=== PATIENT | male | born 1990 | race Caucasian/White ===

== ENCOUNTER 2025-07-15 19:06 | Emergency (ER) | payer SELFPAY ==
[2025-07-15 19:10] VITALS: BP 119/82
[2025-07-15 19:16] VITALS: BP 122/85
--- NOTE | 2025-07-15 20:49 | EDRN ---
patient is alert and oriented x 3, answering orientation questions appropriately with normal speech. per mom, patient is acting unusual, as if his short term memory is impaired. patient states he is unable to recall the events of tonight, only
remembers being at work and driving home from work, he does not remember calling his mom and saying he could not breath. patient endorses headache, congestion, ear ache. patient denies CP, SOB, dizziness. patient denies alcohol use today, states he
took Suboxone for Percocet use, last use of Percocet being Saturday. patient is crying during senior medical billing specialist, but cooperative and calm.
--- NOTE | 2025-07-15 21:16 | ED.GENMED ---
History of Present Illness
General
Chief Complaint: Withdrawal Symptoms
Time Seen by Provider: 07/15/25 21:16
History of Present Illness
History of Present Illness:
FOCUSED PAST MEDICAL HISTORY
- Opioid use disorder
REVIEW OF OLD RECORDS
- In 2019, the patient was seen here with a syncopal event after coughing
Note:
CHIEF COMPLAINT(S)
Altered mental status, memory loss, and breathing difficulty.
HISTORY OF PRESENT ILLNESS
The patient is a 34-year-old male with a history of opioid abuse, including the use of Percocet over the weekend, and is not prescribed Suboxone. The patient was working in [place] earlier today and successfully drove back to [place] but does not
remember returning the company van or the journey back. Upon arriving home, he reported to a family member that he was experiencing difficulty catching his breath. A concerned neighbor was called to check on him after the family member instructed
them to do so. The patient presents with a slight headache and left ear congestion, noting the left ear as feeling clogged. Upon examination, his left tympanic membrane showed erythema but no cerumen obstruction. In addition to these symptoms, the
patient has some history of vasovagal syncope, with a noted episode in 2019. He is currently somewhat sedate and lethargic, able to follow simple commands, but disoriented to the current month while aware of his location at the hospital. His pupils
react briskly and equally, although his current condition does not indicate acute opioid withdrawal or intoxication.
PAST MEDICAL AND SURGICAL HISTORY
History of opioid abuse.
CHRONIC MEDICAL CONDITIONS SIGNIFICANTLY AFFECTING CARE
Ongoing opioid abuse not under medical supervision.
SOCIAL DETERMINANTS AFFECTING HEALTH
The patient has a history of using opioids recreationally and in a potentially unmanaged manner.
REVIEW OF SYSTEMS
- Neurological: Memory loss, confusion regarding current date.
- Respiratory: Reported difficulty breathing.
- Ear, Nose, and Throat: Headache, left ear congestion and pain.
PHYSICAL EXAM
General: GCS 13, appears confused, primarily keeps eyes closed, he appears photophobic
Skin: Warm, dry.
Head: Normocephalic, atraumatic. I see no evidence of craniofacial trauma
Neck: Supple, trachea midline.
Eye Ears, Nose, Mouth, and Throat: Left tympanic membrane shows erythema, oral mucosa moist.
Cardiovascular: Normal peripheral perfusion, no edema.
Respiratory: Respirations are non-labored.
Gastrointestinal: Abdomen nondistended.
Back: Normal range of motion, normal alignment.
Musculoskeletal: Normal range of motion, normal strength.
Neurological: The patient is lethargic, he could not name the month, but he knows he is at [facility], he is moving all extremities
Psychiatric: He appears confused and appears to be an unreliable historian
PLAN
The patient will undergo a computed tomography (CT) scan and blood work to investigate further the cause of his symptoms. Given his history and current presentation, monitoring and possibly addressing his opioid use will be necessary.
DIFFERENTIAL DIAGNOSIS
The Differential Diagnosis includes, in no particular order and is not limited to:
1. Opioid intoxication or withdrawal
2. Vasovagal syncope
3. Respiratory infection
4. Acute anxiety or panic attack
5. Substance abuse or overdose (other than opioids)
6. Intracranial event (e.g., cerebrovascular accident or transient ischemic attack)
7. Seizure
8. Dehydration or electrolyte imbalance
9. Acute ear infection
10. Cognitive disturbance secondary to substance use.
Disposition:
SUMMARY OF ENCOUNTER
The patient was seen in the emergency department due to altered mental status, memory loss, and breathing difficulty. A CT scan, initially read by radiologists, and independently reviewed by me, revealed pneumocephalus. Consultation with
neurosurgery at [facility] indicated a need for a CTA to evaluate potential vascular abnormalities. The CTA of the head and neck showed no signs of vascular abnormality, but there was a noted skull fracture and a very small 5mm epidural
hematoma. The patients clinical status remained stable with a Snehal Coma Scale of 13. After further discussion with trauma services at [facility], they accepted the patient for transfer as a trauma alert.
DISPOSITION
Transfer.
INDEPENDENT REVIEW OF LABS AND INTERPRETATION OF TESTS
- My independent interpretation of the CT scan shows pneumocephalus.
- My independent interpretation of the CTA head and neck shows no signs of vascular abnormality but reveals a skull fracture and a very small 5mm epidural hematoma.
MANAGEMENT OF THE PATIENTS CARE WAS DISCUSSED WITH
Neurosurgery at [facility] and trauma services at [facility].
MEDICAL DECISION MAKING
- Number and Complexity of Problems Addressed: Chronic conditions affecting care [history of opioid abuse] Differential Diagnosis includes:
1. Opioid intoxication or withdrawal
2. Vasovagal syncope
3. Respiratory infection
4. Acute anxiety or panic attack
5. Substance abuse or overdose (other than opioids)
6. Intracranial event (e.g., cerebrovascular accident or transient ischemic attack)
7. Seizure
8. Dehydration or electrolyte imbalance
9. Acute ear infection
10. Cognitive disturbance secondary to substance use
- Data:
- Category 1: Review of external radiology findings of pneumocephalus, skull fracture, and epidural hematoma.
- Category 3: Discussion of management with neurosurgery at [facility] and [facility] trauma services.
- Risk: Escalation of care including transfer for specialized trauma care due to the complexity and severity of findings.
DIAGNOSIS
1. Pneumocephalus (ICD-10: S06.5X9A)
2. Skull fracture (ICD-10: S02.0XXA)
3. Small epidural hematoma (ICD-10: S06.4X0A)
Past History
Past History
ED Past Medical History: None
ED Past Surgical History: None
Social History
Tobacco: Non-smoker
Alcohol: None
Phy Exam
Physical Exam
Physical Exam:
See HPI
Course
Orders/Labs/Results
Orders:
Orders
07/15/25 21:29
Urine Drug Abuse Screen Urgent
07/15/25 21:30
CT Head W/o Iv Contrast Urgent
Comment:
Reason For Exam: LOZADA alt MS
0.9% Sodium Chloride 1000 ml [Nss] 1,000 ml IV BOLUS
07/15/25 21:36
Alcohol Urgent
Complete Blood Count/With Diff Urgent
Comprehensive Metabolic Panel Urgent
TSH Reflex To Free T4 Urgent
07/15/25 22:41
Lactic Acid Q4H
Comment: CANCEL 2nd LACTIC ACID IF 1st LACTIC ACID IS LESS THAN 2
Blood Culture Q30M
ISABELLA Source: Blood/Venous
Specimen Description:
07/15/25 22:42
CT Head & Neck Angio W/wo IV Urgent
Reason For Exam: eval pneumocephalus per olinda
07/15/25 22:46
Blood Culture Q30M
ISABELLA Source: Blood/Venous
Specimen Description:
07/16/25 02:45
Lactic Acid Q4H
Comment: CANCEL 2nd LACTIC ACID IF 1st LACTIC ACID IS LESS THAN 2
Abnormal Lab Results
07/15/25
21:36
WBC 16.0 H 10^3/uL
(4.8-10.8)
MPV 11.0 H fL
(7.4-10.4)
Abs Immat Gran (auto) 0.1 H 10^3/uL
(0-0.05)
Absolute Neuts (auto) 13.9 H 10^3/uL
(1.4-6.5)
Absolute Lymphs (auto) 1.1 L 10^3/uL
(1.2-3.4)
Absolute Monos (auto) 0.7 H 10^3/uL
(0.1-0.6)
Neutrophils % 87.2 H %
(42.2-75.2)
Lymphocytes % 7.1 L %
(20.5-51.1)
Carbon Dioxide 31 H mmol/L
(22-30)
Total Protein 8.5 H g/dl
(6.3-8.2)
07/15/25 21:36
07/15/25 21:36
Vital Signs
Initial and Last Documented VS:
Initial Vital Signs
Pulse Resp BP Pulse Ox
75 20 119/82 100
07/15/25 19:10 07/15/25 19:10 07/15/25 19:10 07/15/25 19:10
Last Documented Vital Signs
Temp Pulse Resp BP Pulse Ox
37.2 C 76 20 128/69 96
07/15/25 23:42 07/16/25 00:45 07/16/25 00:45 07/16/25 00:00 07/16/25 00:45
*Pulse Oximetry
SaO2: 97
Oxygen Mode of Delivery: Room air
Patient hypoxic: no
*Critical Care Note
Total Time (30-74mins, 75-104mins- exclusive of procedures): 45
comment:
Multiple discussions with consultants including neurosurgeon at [facility] and trauma surgeon at [facility]
ED Attending Note
-
Portions of this chart may have been created with voice recognition software.� Occasional wrong word or��sound alike� substitutions may have occurred due to the inherent limitations of voice recognition software.
Discharge Plan
Departure
Patient Disposition: Acute Care Hospital
Date of Disposition: 07/15/25
Time of Disposition: 22:37
Discharge Problem:
Pneumocephalus
Hospital Transfer
Other hospital: [facility]
I certify that the patient requires transfer: Yes
Discussed case with accepting physician: Trauma attending at [facility]-
Reason for transfer: higher level of care
Interventions
Interventions:
*Risk Screen - Suicide Last Done: 07/15/25 19:19
*General Assessment Last Done: 07/15/25 19:19
*Neglect/Abuse Screening Last Done: 07/15/25 20:44
*ED- Fall Risk Assessment Last Done: 07/16/25 00:36
*ED COVID-19 Vaccine History Last Done: 07/15/25 19:19
*ED Influenza Vaccine History Last Done: 07/15/25 19:19
ED- Cardiac Assessment Last Done: 07/15/25 20:53
ED- Neurological Assessment Last Done: 07/15/25 20:43
ED-Psychological Assessment Last Done: 07/15/25 20:43
Discharge Date and Time
Print Language: DJIBOUTIAN
[2025-07-15] MEDS: NSS 1000 IV (21:41)
[2025-07-15 21:45] LABS: Hematocrit 44.1 % (39.0-52.0); Hemoglobin 14.6 g/dL (13.0-18.0); Mean Corp Hgb Conc. 33.1 g/dL (33.0-37.0); Mean Corpuscular Volume 86.5 fL (80.0-94.0); Nucleated Red Blood Cells % 0 % (-); Platelet Count 188 10^3/uL (130-400); Red Cell Dist. Width 13.4 % (11.5-14.5)
[2025-07-15 22:04] LABS: ALT (SGPT) 32 U/L (0-50); AST (SGOT) 34 U/L (17-59); Albumin 5.0 g/dl (3.5-5.0); Alkaline Phosphatase 59 U/L (38-126); Blood Urea Nitrogen 16 mg/dl (9-20); Calcium 9.7 mg/dl (8.4-10.2); Carbon Dioxide 31 mmol/L (22-30); Chloride 100 mmol/L (98-107); Glucose 92 mg/dl (70-99); Potassium 3.9 mmol/L (3.5-5.1); Sodium 135 mmol/L (135-145); Total Protein 8.5 g/dl (6.3-8.2); eGFR > 60.00
[2025-07-15 22:27] VITALS: BP 123/78
[2025-07-15 22:54] VITALS: BMI 25.1
[2025-07-15 23:00] VITALS: BP 133/68
[2025-07-16] VITALS: BP 128/69
[2025-07-16 01:00] VITALS: BP 119/62
== END 2025-07-16 01:27 | disposition short-term general hospital (02) ==
LOC: EMR 19:06
PROVIDERS: EMERGENCY PHYSICIAN Emergency Medicine
DX: G93.89 Other specified disorders of brain (principal); S06.4XAA Epidural hemorrhage with loss of consciousness status unknown, initial encounter; S02.19XA Other fracture of base of skull, initial encounter for closed fracture; R40.2412 Glasgow coma scale score 13-15, at arrival to emergency department; X58.XXXA Exposure to other specified factors, initial encounter; F11.10 Opioid abuse, uncomplicated
CPT/HCPCS: 99291; 96360; 96361; 70450; 70496; 70498; 80053; 82077; 83605; 84443; 85025; 87040; Q9967